=== PATIENT | female | born 1985 | race Caucasian/White ===

== ENCOUNTER 2018-04-19 10:05 | Emergency (ER) | payer OTHER ==
[2018-04-19 10:14] VITALS: BP 114/66
--- NOTE | 2018-04-19 10:58 | UC ---
Shoulder Pain HPI - HPI Summary HPI Summary: WAS LYING ON THE COUCH AND MOVED A HEAVY BOOK WITH HER LEFT ARM 5 DAYS AGO. FELT A STRAIN IN HER SHOULDER AND LATERAL RIB CAGE. PAIN HAS PERSISTED SINCE THEN. ALSO HAS DISCOMFORT EXTENDING INTO HER ELBOW AND LEFT WRIST. NO CHEST PAIN, SHORTNESS OF BREATH OR NAUSEA. WORSE WITH ARM MOVEMENT AND PRESSURE. PAIN IS NOT WORSE WITH DEEP BREATHS OR COUGHING/SNEEZING. - History of Current Complaint Chief Complaint: UCUpperExtremity Stated Complaint: SHOULDER INJURY Time Seen by Provider: 04/19/18 10:21 Hx Obtained From: Patient Hx Last Menstrual Period: depo Onset/Duration: Sudden Onset, Lasting Days, Still Present Timing: Constant Severity Initially: Moderate Severity Currently: Moderate Pain Intensity: 7 Pain Scale Used: 0-10 Numeric Character: Sharp Alleviating Factor(s): Rest, OTC Meds Associated Signs And Symptoms: Negative: Swelling, Redness, Numbness/Tingling Related History: Dominant Hand Right - Allergies/Home Medications Allergies/Adverse Reactions: Allergies Allergy/AdvReac Type Severity Reaction Status Date / Time No Known Allergies Allergy Verified 04/19/18 10:15 PMH/Surg Hx/FS Hx/Imm Hx - Additional Past Medical History Additional PMH: OVARIAN CYSTS - Surgical History Surgical History: Yes Surgery Procedure, Year, and Place: plate to collar bone, t&a - Family History Known Family History: Positive: Hypertension - Social History Alcohol Use: Weekly Substance Use Type: None Smoking Status (MU): Former Smoker Review of Systems Constitutional: Negative Skin: Negative Respiratory: Negative Cardiovascular: Negative Gastrointestinal: Negative Musculoskeletal: Arthralgia All Other Systems Reviewed And Are Negative: Yes Physical Exam Triage Information Reviewed: Yes Appearance: Well-Appearing, Well-Nourished, Pain Distress - MILD Vital Signs: Initial Vital Signs Temp 98 F 04/19/18 10:10 Pulse 80 04/19/18 10:10 Resp 17 04/19/18 10:10 BP 114/66 04/19/18 10:10 Pulse Ox 100 04/19/18 10:10 Vital Signs Reviewed: Yes Eyes: Positive: Conjunctiva Clear ENT: Positive: Hearing grossly normal Neck: Positive: Supple Respiratory: Positive: No respiratory distress, No accessory muscle use Cardiovascular: Positive: Pulses Normal Abdomen Description: Positive: Soft Musculoskeletal: Positive: ROM Intact, No Edema, Other: - TTP OVERLYING LEFT LATERAL RIB CAGE AND LEFT DELTOID AND LEFT TRAPEZIUS. NO BONY TENDERNESS. FULL ROM LEFT SHOULDER. POSITIVE TINELS AND PHALENS LEFT WRIST Neurological: Positive: Alert Psychological: Positive: Age Appropriate Behavior Skin: Negative: rashes Shoulder Course/Dx - Course Course Of Treatment: PT DECLINES XRAYS TODAY. WILL TRY CONSERVATIVE MGMT AND F/ U PCP OR ORTHO. - Differential Dx/Diagnosis Provider Diagnoses: 1. LEFT SHOULER SPRAIN. 2. LEFT CARPAL TUNNEL Discharge - Sign-Out/Discharge Documenting (check all that apply): Patient Departure - Discharge Plan Condition: Stable Disposition: HOME Prescriptions: Cyclobenzaprine TAB* [Flexeril TAB*] 10 mg PO BID PRN #30 tab PRN Reason: Pain Naproxen [Naproxen EC] 500 mg PO BID PRN #30 tab PRN Reason: Pain Patient Education Materials: Shoulder Sprain (ED), Exercises for Shoulder Abduction and Adduction (ED) Referrals: Louise Heller NP [Primary Care Provider] - If Needed Erwin Allen MD [Medical Doctor] - 2 Weeks Additional Instructions: YOUR SYMPTOMS AND MECHANISM OF INJURY ARE CONSISTENT WITH A SHOULDER SPRAIN. REST, NAPROSYN AND MUSCLE RELAXER NEEDED. WEAR THE SLING NEEDED FOR COMFORT. FOLLOW-UP WITH ORTHOPEDICS IF YOUR SYMPTOMS ARE NOT IMPROVING OVER THE NEXT WEEK OR 2. THE DISCOMFORT IN YOUR WRIST IS MORE CONSISTENT WITH CARPAL TUNNEL SYNDROME. WEAR THE WRIST SPLINT AT NIGHT WHILE YOU'RE SLEEPING AND DURING THE DAY ABLE TO HELP REDUCE THE RISK OF FURTHER IRRITATION OF THE NERVE. YOU MAY ALSO FOLLOW-UP WITH ORTHOPEDICS ABOUT THIS ISSUE. CARPAL TUNNEL SYNDROME: Your examination suggests carpal tunnel syndrome. This syndrome is due to pressure on a nerve in the wrist. The pressure may be due to an old injury, hard work using the wrist, or arthritis in the wrist. Typical symptoms are tingling, numbness, and pain in the palm, thumb, index and middle fingers, and one side of the ring finger. This problem often has to be repaired surgically. If the physician feels that your problem is of a more chronic nature, you will be referred to a specialist for further care. Sometimes a splint, ice packs, and antiinflammatory medication make the syndrome go away -- if symptoms have just started. You should call the doctor if pain increases, if you develop difficulty using the thumb or fingers, or if major swelling occurs. - Billing Disposition and Condition Condition: STABLE Disposition: Home
== END 2018-04-19 11:12 | disposition home or self-care (01) ==
LOC: UCEAST 10:05
DX: S43.402A Unspecified sprain of left shoulder joint, initial encounter (principal); X50.0XXA Overexertion from strenuous movement or load, initial encounter; Y93.89 Activity, other specified; Y92.008 Other place in unspecified non-institutional (private) residence as the place of occurrence of the external cause; G56.02 Carpal tunnel syndrome, left upper limb; Z83.42 Family history of familial hypercholesterolemia; Z87.891 Personal history of nicotine dependence
CPT/HCPCS: 99213; G0463

== ENCOUNTER 2018-10-12 18:19 | Emergency (ER) | payer OTHER ==
[2018-10-12 18:35] VITALS: BP 139/75
[2018-10-12] MEDS ORDERED: Acetaminophen TAB* 325 MG PO ONE (18:55)
--- NOTE | 2018-10-12 20:36 | UC ---
Upper Extremity HPI - HPI Summary HPI Summary: 33-year-old woman comes in to [facility] with a chief complaint of fall and a right arm injury. She was slipping on the ice and her held her right arm and it kept her from falling all the way to the ground. However she has a lot of pain in the right arm. She has pain in the wrist the elbow and shoulder. She is having a hard time determining if it's radiation of pain or if each joint is injured. No complaint of any numbness. Pain is worse with movement. She did take some nonsteroidal anti-inflammatory prior to arrival which helped a little bit but this pain is still moderate to severe. Denies any other injury and the other arm or chest or legs. No complaint of any head injury or neck pain. - History of Current Complaint Chief Complaint: UCUpperExtremity Stated Complaint: RT WRIST AND ARM Time Seen by Provider: 10/12/18 18:50 Hx Last Menstrual Period: on control Pain Intensity: 7 - Allergies/Home Medications Allergies/Adverse Reactions: Allergies Allergy/AdvReac Type Severity Reaction Status Date / Time No Known Allergies Allergy Verified 04/19/18 10:15 Home Medications: Home Medications Ibuprofen [Advil] 200 mg PO 10/12/18 [History] PMH/Surg Hx/FS Hx/Imm Hx Previously Healthy: Yes - Surgical History Surgical History: Yes Surgery Procedure, Year, and Place: plate to collar bone, t&a - Family History Known Family History: Positive: Hypertension - Social History Alcohol Use: Weekly Substance Use Type: None Smoking Status (MU): Former Smoker Review of Systems All Other Systems Reviewed And Are Negative: Yes Constitutional: Positive: Negative Skin: Positive: Negative Eyes: Positive: Negative ENT: Positive: Negative Respiratory: Positive: Negative Cardiovascular: Positive: Negative Gastrointestinal: Positive: Negative Motor: Positive: Negative Neurovascular: Positive: Negative Musculoskeletal: Positive: Other: - see hpi Neurological: Positive: Negative Psychological: Positive: Negative Is Patient Immunocompromised?: No Physical Exam Triage Information Reviewed: Yes Appearance: Well-Appearing, Well-Nourished, Pain Distress - mild to moderate pain with movement of right arm Vital Signs: Initial Vital Signs Temp 98.6 F 10/12/18 18:29 Pulse 82 10/12/18 18:29 Resp 16 10/12/18 18:29 BP 139/75 10/12/18 18:29 Pulse Ox 100 10/12/18 18:29 Vital Signs Reviewed: Yes Eye Exam: Normal Neck exam: Normal Neck: Positive: Supple, Nontender Respiratory: Positive: Lungs clear, Normal breath sounds, No respiratory distress Cardiovascular: Positive: RRR Musculoskeletal: Positive: Other: - Patient is tender to palpation in the right wrist elbow and shoulder. She is able to move all these joints but with a great deal of pain. Her hand wrist and fingers have full range of motion and strength no sensation deficits normal capillary refill normal radial pulses. Elbow is able to move but with pain the shoulder also is able to follow-up with pain. Neurological Exam: Normal Neurological: Positive: Alert, Muscle Tone Normal Psychological Exam: Normal Psychological: Positive: Age Appropriate Behavior Skin Exam: Normal Upper Extremity Course/Dx - Course Course Of Treatment: I discussed the x-rays with the patient. I do not see any fractures or obvious dislocations. Radiologist reading is pending. Patient was put in a sling by nursing and she is neurovascularly intact after placement of the sling. Having the arm in the sling did help decrease the pain overall. With the sling on the pain is worse in the shoulder and elbow. The overall plan is ice anti-inflammatories and use the sling when necessary. I let the patient know I showed her shoulder range of motion exercises to help avoid frozen shoulder. If she is not completely improved she is to follow-up with orthopedics. Recheck sooner if needed. - Differential Dx/Diagnosis Provider Diagnosis: Right shoulder strain, Strain of right elbow, Right wrist sprain Discharge - Sign-Out/Discharge Documenting (check all that apply): Patient Departure All imaging exams completed and their final reports reviewed: No - Discharge Plan Condition: Stable Disposition: HOME Patient Education Materials: Elbow Sprain (ED), Shoulder Sprain (ED), Wrist Sprain (ED) Referrals: Louise Heller NP [Primary Care Provider] - Caty Cardenas MD [Medical Doctor] - Additional Instructions: FOLLOW UP WITH DR CARDENAS, ORTHOPEDICS, IF NOT COMPLETELY IMPROVED. GET RECHECKED SOONER WITH ANY WORSENING OF YOUR CONDITION OR QUESTIONS OR CONCERNS. - Billing Disposition and Condition Condition: STABLE Disposition: Home
--- NOTE | 2018-10-13 18:26 | UC ---
- Progress Note Progress Note: Radiologist reading of right wrist and forearm elbow and shoulder x-rays from October 12, 2018 are read as no acute fractures or dislocations. Provider interpretation from the same date is the same therefore there is no discrepancy Course/Dx - Diagnoses Provider Diagnoses: Right shoulder strain, Strain of right elbow, Right wrist sprain Discharge - Sign-Out/Discharge Documenting (check all that apply): Patient Departure All imaging exams completed and their final reports reviewed: Yes - Discharge Plan Condition: Stable Disposition: HOME Patient Education Materials: Elbow Sprain (ED), Shoulder Sprain (ED), Wrist Sprain (ED) Referrals: Caty Cardenas MD [Medical Doctor] - Louise Heller NP [Primary Care Provider] - Additional Instructions: FOLLOW UP WITH DR CARDENAS, ORTHOPEDICS, IF NOT COMPLETELY IMPROVED. GET RECHECKED SOONER WITH ANY WORSENING OF YOUR CONDITION OR QUESTIONS OR CONCERNS. - Billing Disposition and Condition Condition: STABLE Disposition: Home
== END 2018-10-12 21:00 | disposition home or self-care (01) ==
LOC: UCEAST 18:19
DX: S46.911A Strain of unspecified muscle, fascia and tendon at shoulder and upper arm level, right arm, initial encounter (principal); S66.911A Strain of unspecified muscle, fascia and tendon at wrist and hand level, right hand, initial encounter; S46.811A Strain of other muscles, fascia and tendons at shoulder and upper arm level, right arm, initial encounter; Z87.891 Personal history of nicotine dependence; W00.0XXA Fall on same level due to ice and snow, initial encounter; Y92.9 Unspecified place or not applicable
CPT/HCPCS: 99213; A9270-GY; G0463